=== PATIENT | male | born 1970 | race Caucasian/White ===

== ENCOUNTER 2017-01-18 16:52 | Emergency (ER) | payer BC ==
[2017-01-18 17:11] VITALS: BP 171/104
--- NOTE | 2017-01-18 17:16 | UC ---
Skin Complaint HPI - HPI Summary HPI Summary: Notices small pimples in area of tattoo that he got a month ago, got the tattoo added to 1.5 weeks ago, then 01/12/17 noted the pimples. Last pm noted drainage. No hx MRSA. Elevated BP noted at triage. Pt takes BP med at night. States he took it last pm. - History of Current Complaint Chief Complaint: UCSkin Time Seen by Provider: 01/18/17 17:14 Stated Complaint: SKIN Hx Obtained From: Patient Onset/Duration: Gradual Onset, Lasting Days, Still Present Skin Exposure Onset/Duration: Weeks Ago - tattoo 1 month ago, got added to it a few weeks ago, then got worse 01/12/17. Timing: Constant Onset Severity: Moderate Current Severity: Moderate Pain Intensity: 2 Pain Scale Used: 0-10 Numeric Location: Other - right upper arm Character: Swelling, Raised, Painful Aggravating: Nothing Alleviating: OTC Creams/Salves - was using Aquaphor cream after the addition to the tattoo, stopped this on 01/13/17 Associated Signs & Symptoms: Positive: Drainage, Tenderness. Negative: Fever, Chills, Red Streaks, Joint Swelling Related History: Other: - recent tattoo. - Allergy/Home Medications Allergies/Adverse Reactions: Allergies Allergy/AdvReac Type Severity Reaction Status Date / Time No Known Allergies Allergy Verified 01/18/17 17:11 Home Medications: Home Medications Omeprazole CAP* [Prilosec CAP* 20 MG] 40 mg PO DAILY 01/18/17 [History Confirmed 01/18/17] Valsartan/HCTZ 320/12.5(NF) [Diovan Hct 320/12.5(NF)] 1 tab PO BEDTIME 01/18/17 [History Confirmed 01/18/17] Review of Systems Constitutional: Negative Skin: Other - multiple draining pimples on right upper arm Gastrointestinal: Negative Motor: Negative Neurovascular: Negative Musculoskeletal: Myalgia Neurological: Negative Psychological: Negative All Other Systems Reviewed And Are Negative: Yes PMH/Surg Hx/FS Hx/Imm Hx Endocrine History Of: Denies: Diabetes, Thyroid Disease Cardiovascular History Of: Reports: Hypertension Denies: Cardiac Disorders Respiratory History Of: Denies: Asthma - Surgical History Surgical History: Yes Surgery Procedure, Year, and Place: HERNIA REPAIR--NOV, 2012. 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 [place] Lives: With Family - daughter Alcohol Use: Occasionally Substance Use Type: None Smoking Status (MU): Never Smoked Tobacco - Immunization History Most Recent Influenza Vaccination: [id number] Most Recent Tetanus Shot: unknown, maybe summer 2015 Physical Exam Triage Information Reviewed: Yes Appearance: Ill-Appearing, Pain Distress, Obese Vital Signs: Initial Vital Signs Temp 97.3 F 01/18/17 17:03 Pulse 89 01/18/17 17:03 Resp 14 01/18/17 17:03 BP 171/104 01/18/17 17:03 Pulse Ox 95 01/18/17 17:03 elevated BP noted Vital Signs Reviewed: Yes Eyes: Positive: Conjunctiva Clear ENT: Positive: Normal ENT inspection Neck: Positive: Supple Respiratory: Positive: Lungs clear, Normal breath sounds, No respiratory distress Cardiovascular: Positive: RRR, No Murmur, Pulses Normal, Brisk Capillary Refill Musculoskeletal: Positive: Strength Intact, ROM Intact Neurological: Positive: Alert, Muscle Tone Normal Psychological Exam: Normal Skin: Positive: Other - multiple pustules, one area with 2cm induration and drainage; cultured. in area of tattoo. No red streaks. Course/Dx - Course Course Of Treatment: wound culture sent. - Differential Diagnoses - Skin Complaint Differential Diagnoses: Abscess, Allergic Reaction, Cellulitis, Local Allergic Reaction - Diagnoses Provider Diagnoses: 1) draining abscesses, infected tattoo. 2) HTN in poor control Discharge - Discharge Plan Condition: Stable Disposition: HOME Prescriptions: Cephalexin CAP* [Keflex 500 CAP*] 500 mg PO QID #40 cap Sulfamethox/Trimethoprim DS* [Bactrim DS 800/160 TAB*] 1 tab PO BID #20 tab Patient Education Materials: Abscess (ED) Referrals: Adelaida Snyder MD [Primary Care Provider] - 2 Days Additional Instructions: Do not squeeze the pimples any more. Apply warm compresses 3-4 times per day. We will notify you if you can stop one of the antibiotics or if you need a change in therapy based on the wound culture sent today. Follow up with Dr. Snyder regarding your elevated BP, and also regarding today's visit. Return to urgent care if any new or worsening symptoms.
== END 2017-01-18 18:16 | disposition home or self-care (01) ==
LOC: UCCORT 16:52
DX: L02.413 Cutaneous abscess of right upper limb (principal); L81.8 Other specified disorders of pigmentation; I10 Essential (primary) hypertension; E66.9 Obesity, unspecified
CPT/HCPCS: 87070; 87077; 87186; 87205; 87640; 87641; 99212; G0463